=== PATIENT | male | born 1955 | race Caucasian/White ===

== ENCOUNTER 2023-09-21 12:56 | Outpatient (CLI) | payer OTHER | END 2023-09-21 12:57 | disposition home or self-care (01) | LOC: BICMRI 12:56 | PROVIDERS: ATTEND Student in an Organized Health Care Education/Training Program | DX: M25.551 Pain in right hip (principal); M25.552 Pain in left hip; M16.0 Bilateral primary osteoarthritis of hip; M67.854 Other specified disorders of tendon, left hip; M67.853 Other specified disorders of tendon, right hip; S76.012A Strain of muscle, fascia and tendon of left hip, initial encounter; S76.011A Strain of muscle, fascia and tendon of right hip, initial encounter | CPT/HCPCS: 72081 ==

== ENCOUNTER 2024-05-23 11:00 | Outpatient (CLI) | payer OTHER | END 2024-05-23 11:01 | disposition home or self-care (01) | LOC: PET 11:00 | PROVIDERS: ATTEND Internal Medicine | DX: C65.2 Malignant neoplasm of left renal pelvis (principal); C77.9 Secondary and unspecified malignant neoplasm of lymph node, unspecified; R59.0 Localized enlarged lymph nodes; Z90.5 Acquired absence of kidney | CPT/HCPCS: 78815; A9552 ==

== ENCOUNTER 2024-07-11 11:24 | Outpatient (CLI) | payer OTHER | END 2024-07-11 11:25 | disposition home or self-care (01) | LOC: ULT 11:24 | PROVIDERS: ATTEND Internal Medicine | DX: M79.605 Pain in left leg (principal); C65.2 Malignant neoplasm of left renal pelvis ==

== ENCOUNTER 2024-08-04 02:36 | Observation (INO) | payer MEDICARE, OTHER ==
[2024-08-04 03:20] LABS: #Basophils 0.03 10x3/uL (0.0-0.2); %Basophils 0.5 % (0.0-1.0); %Eosinophils 0.9 % (0.0-10.0); %Lymphocytes 11.6 % (21.0-51.0); %Monocytes 7.1 % (0.0-10.0); Hematocrit 40.2 % (42.0-52.0); Hemoglobin 13.5 g/dL (14.0-18.0); Mean Corpuscular HGB CONC 33.6 g/dL (32.0-36.0); Mean Corpuscular Hemoglobin 29.1 pg (27.0-31.0); Mean Corpuscular Volume 86.6 fL (78.0-98.0); Mean Platelet Volume 12.3 fL (7.4-10.4); Platelet Count 164 10x3/uL (130-400); RBC Distribution Width 14.6 % (11.5-14.5); Red Blood Cell (RBC) Count 4.64 mill/uL (4.70-6.10)
[2024-08-04 03:40] LABS: ALT (SGPT) 10 U/L (Less than 45); Alkaline Phosphatase 50 U/L (40-110); Anion Gap 16 mmol/L (10-20); BUN (Urea Nitrogen) 9 mg/dL (8.4-25.7); Bilirubin, Total 0.6 mg/dL (0.3-1.2); Calc. Creatinine Clearance 0 mL/min (70-130); Carbon Dioxide 21 mmol/L (23-31); Chloride 103 mmol/L (98-107); Estimated GFR 54; Globulin 4.3 g/dL (2.4-3.5); Glucose 141 mg/dL (80-115); Potassium 3.6 mmol/L (3.5-5.1); Protein, Total 8.3 g/dL (5.8-8.1); Sodium 136 mmol/L (136-145)
[2024-08-04 04:01] LABS: AST (SGOT) 57 U/L (11-34)
[2024-08-04] MEDS ORDERED: Acetaminophen 500 MG TAB ONE (04:19)
[2024-08-04] MEDS ORDERED: cefTRIAXone (ROCEPHIN) 2 GM VIAL ONE (04:19)
[2024-08-04] MEDS ORDERED: Sodium Chloride 0.9% 100 ML ONE (04:19)
[2024-08-04] MEDS ORDERED: Azithromycin 500 MG VIAL ONE (04:19)
[2024-08-04] MEDS ORDERED: Morphine 2 MG/ML VIAL ONE (04:19)
[2024-08-04] MEDS ORDERED: Oseltamivir 75 MG CAP ONE (06:48)
[2024-08-04] MEDS ORDERED: Ondansetron ODT 4 MG TAB SL PRN (07:00)
[2024-08-04] MEDS ORDERED: Ondansetron PF 4 MG/2 ML Vial IVP PRN ×2 (07:00→08:52)
[2024-08-04] MEDS ORDERED: Acetaminophen 325 MG TAB PO PRN (07:00)
[2024-08-04 08:05] LABS: Bacteria/HPF None Seen HPF (None Seen); Bilirubin Negative (Negative); Blood, Urine Negative (Negative); CAUTI Indications for Culture Fever or rigors; Clarity Clear (Clear); Glucose, Urine (Dipstick) Normal (Negative); Ketone, Urine Negative (Negative); Leukocyte Negative Leu/uL (Negative); Nitrite Negative (Negative); Protein, Urine (Dipstick) Negative (Neg-Trace); RBC/HPF 0-3 HPF (0-3); Specific Gravity, Urine 1.022 (1.002-1.036); Squamous Epithelial None Seen HPF (0-3); Urobilinogen Normal mg/dL (Less than 2); WBC/HPF 0-3 HPF (0-3)
[2024-08-04 08:06] LABS: Urine Culture Reflex No No
[2024-08-04] MEDS ORDERED: Bisacodyl 5 MG TAB PO PRN (08:52)
[2024-08-04] MEDS ORDERED: Ondansetron ODT 8 MG TAB PO PRN (09:06)
[2024-08-04] MEDS ORDERED: Prochlorperazine Maleate 5 MG TAB PO PRN (09:28)
[2024-08-04] MEDS: Oseltamivir 75 MG CAP PO SCH ×2 (09:30→19:55)
[2024-08-04 09:32] VITALS: BMI 27.8
[2024-08-04] MEDS: guaiFENesin ER 600 MG TAB PO SCH ×2 (10:33→19:55)
[2024-08-04] MEDS: Acetaminophen 325 MG TAB PO PRN (10:34)
[2024-08-04] MEDS: Sodium Chloride 0.9% 1,000 ML IV SCH (10:34)
[2024-08-04] MEDS: Enoxaparin 40 MG (0.4 mL) SYRINGE SC SCH (10:34)
[2024-08-04] MEDS: HYDROcodone/Acetaminophen 10/325 mg Tablet PO PRN (10:36)
[2024-08-04] MEDS: hydrOXYzine 25 MG TAB PO PRN (15:40)
[2024-08-04] MEDS: Butalbital 50 MG/Aspirin 325 MG/Caffeine 40 MG CAPSULE PO SCH (17:18)
[2024-08-04] MEDS: Senokot 8.6 MG TAB PO SCH (18:20)
[2024-08-04] MEDS: Polyethylene Glycol 3350 17 GM Packet PO SCH (18:22)
[2024-08-04] MEDS: Calcium Carbonate 500 MG ChewTAB PO PRN (19:20)
[2024-08-04] MEDS: Amitriptyline HCl 100 MG TAB PO SCH (19:55)
[2024-08-04] MEDS ORDERED: cloNIDine 0.1 MG TAB PO PRN (21:00)
[2024-08-05] MEDS: cefTRIAXone\\ROCEPHIN 1 GM in Sodium Chloride 0.9% 100 ML IVPB SCH (05:08)
[2024-08-05] MEDS: Azithromycin 500 MG in Sodium Chloride 0.9% 250 ML 250 ML IVPB SCH (06:16)
[2024-08-05] MEDS: Senokot 8.6 MG TAB PO SCH (08:13)
[2024-08-05] MEDS: Polyethylene Glycol 3350 17 GM Packet PO SCH (08:14)
[2024-08-05 10:59] LABS: #Basophils Less than 0.03 10x3/uL (0.0-0.2); %Basophils 0.7 % (0.0-1.0); %Eosinophils 2.2 % (0.0-10.0); %Lymphocytes 31.6 % (21.0-51.0); %Monocytes 19.3 % (0.0-10.0); %Neutrophils 45.5 % (42.0-75.0)
[2024-08-05 11:00] LABS: Hematocrit 37.1 % (42.0-52.0); Hemoglobin 12.3 g/dL (14.0-18.0); Mean Corpuscular HGB CONC 33.2 g/dL (32.0-36.0); Mean Corpuscular Hemoglobin 29.2 pg (27.0-31.0); Mean Corpuscular Volume 88.1 fL (78.0-98.0); Mean Platelet Volume 12.2 fL (7.4-10.4); Platelet Count 125 10x3/uL (130-400); RBC Distribution Width 15.2 % (11.5-14.5); Red Blood Cell (RBC) Count 4.21 mill/uL (4.70-6.10)
[2024-08-05 11:28] LABS: Anion Gap 11 mmol/L (10-20); BUN (Urea Nitrogen) 9 mg/dL (8.4-25.7); Calc. Creatinine Clearance 87 mL/min (70-130); Calcium 8.4 mg/dL (7.8-10.44); Carbon Dioxide 26 mmol/L (23-31); Chloride 105 mmol/L (98-107); Estimated GFR 74; Glucose 131 mg/dL (80-115); Potassium 3.7 mmol/L (3.5-5.1); Sodium 138 mmol/L (136-145)
[2024-08-05 11:41] LABS: Platelet Adequacy Comment Platelets Decreased; Polychromasia SLIGHT = 2-3 cells HPF (0-2)
[2024-08-05 13:07] VITALS: BP 122/85; TEMP 98.6
== END 2024-08-05 14:10 | disposition home or self-care (01) ==
LOC: ERS 02:36 → T4-B 08:05
PROVIDERS: ADMIT Student in an Organized Health Care Education/Training Program; ATTEND Internal Medicine
DX: A41.9 Sepsis, unspecified organism (principal); M47.899 Other spondylosis, site unspecified; J10.1 Influenza due to other identified influenza virus with other respiratory manifestations; E78.5 Hyperlipidemia, unspecified; C68.9 Malignant neoplasm of urinary organ, unspecified; F41.9 Anxiety disorder, unspecified; I10 Essential (primary) hypertension; Z88.5 Allergy status to narcotic agent; Z79.899 Other long term (current) drug therapy; Z98.890 Other specified postprocedural states; Z79.51 Long term (current) use of inhaled steroids
CPT/HCPCS: 71045; 80048; 80053; 81001; 82962 ×2; 83605; 85025 ×2; 87040; 87081; 87086; 87428; 87430; 96361; 96365; 96372 ×2; 96375; 96376; 99284; G0378 ×3; J0456 ×2; J0696 ×2; J1650 ×2; J2272; J7030; J7050; 36415; 36416

== ENCOUNTER 2024-08-06 08:00 | Outpatient (CLI) | payer MEDICARE, OTHER | END 2024-08-06 08:01 | disposition home or self-care (01) | LOC: PET 08:00 | PROVIDERS: ATTEND Internal Medicine | DX: C65.2 Malignant neoplasm of left renal pelvis (principal); R16.0 Hepatomegaly, not elsewhere classified | CPT/HCPCS: 78815; A9552 ==

== ENCOUNTER 2025-03-04 15:40 | Emergency (ER) | payer OTHER ==
[~2025-03-04 15:40] MED LIST: Iopamidol-370 76% 500 ML MDV (1 ML CHARGE) ONE
[2025-03-04 17:18] LABS: #Basophils Less than 0.03 10x3/uL (0.0-0.2); #Eosinophils 0.17 10x3/uL (0.0-0.7); #Monocytes 0.87 10x3/uL (0.11-0.59); #Neutrophils 6.14 10x3/uL (1.40-6.50); %Basophils 0.2 % (0.0-1.0); %Eosinophils 2.0 % (0.0-10.0); %Lymphocytes 13.6 % (21.0-51.0); %Monocytes 10.4 % (0.0-10.0); %Neutrophils 73.2 % (42.0-75.0); Hematocrit 37.9 % (42.0-52.0); Hemoglobin 12.1 g/dL (14.0-18.0); Mean Corpuscular Hemoglobin 28.1 pg (27.0-31.0); Mean Corpuscular Volume 87.9 fL (78.0-98.0); Platelet Count 246 10x3/uL (130-400); Red Blood Cell (RBC) Count 4.31 mill/uL (4.70-6.10); White Blood Cell (WBC) Count 8.39 10x3/uL (4.8-10.8)
[2025-03-04 17:32] LABS: ALT (SGPT) Less than 7 U/L (Less than 45); AST (SGOT) 25 U/L (11-34); Albumin 3.9 g/dL (3.1-4.5); Alkaline Phosphatase 88 U/L (40-110); Anion Gap 15 mmol/L (10-20); BUN (Urea Nitrogen) 15 mg/dL (8.4-25.7); Bilirubin, Total 0.5 mg/dL (0.3-1.2); Calc. Creatinine Clearance 0 mL/min (70-130); Calcium 9.3 mg/dL (7.8-10.44); Carbon Dioxide 24 mmol/L (23-31); Chloride 106 mmol/L (98-107); Globulin 4.1 g/dL (2.4-3.5); Glucose 97 mg/dL (80-115); Lipase 23 U/L (8-78); Potassium 4.2 mmol/L (3.5-5.1); Sodium 141 mmol/L (136-145)
[2025-03-04 18:47] LABS: Bacteria/HPF None Seen HPF (None Seen); CAUTI Indications for Culture Acute Hematuria; Glucose, Urine (Dipstick) Normal (Negative); Leukocyte Negative Leu/uL (Negative); Protein, Urine (Dipstick) Negative (Neg-Trace); RBC/HPF 0-3 HPF (0-3); Specific Gravity, Urine 1.037 (1.002-1.036); WBC/HPF 0-3 HPF (0-3)
[2025-03-04 19:00] LABS: Urine Culture Reflex No No
== END 2025-03-04 20:15 | disposition home or self-care (01) ==
LOC: ERS 15:40
DX: C78.7 Secondary malignant neoplasm of liver and intrahepatic bile duct (principal); R10.11 Right upper quadrant pain; I10 Essential (primary) hypertension; Z85.528 Personal history of other malignant neoplasm of kidney; Z79.899 Other long term (current) drug therapy
CPT/HCPCS: 74177; 80053; 81001; 83690; 85025; 96374; 96376; J2270; Q9967

== ENCOUNTER 2025-03-19 14:07 | Outpatient (CLI) | payer OTHER ==
[2025-03-19] MEDS ORDERED: Iopamidol 370 76% 100 ML VIAL ONE (15:24)
== END 2025-03-19 14:08 | disposition home or self-care (01) ==
LOC: CT 14:07
PROVIDERS: ATTEND Internal Medicine
DX: C65.2 Malignant neoplasm of left renal pelvis (principal); C78.7 Secondary malignant neoplasm of liver and intrahepatic bile duct
CPT/HCPCS: 71260; 74177; Q9967

== ENCOUNTER 2025-04-22 16:22 | Inpatient (IN) | payer OTHER ==
[2025-04-22] MEDS ORDERED: Acetaminophen 500 MG TAB ONE (17:09)
[2025-04-22 17:18] LABS: #Basophils Less than 0.03 10x3/uL (0.0-0.2); #Eosinophils 0.09 10x3/uL (0.0-0.7); #Monocytes 0.48 10x3/uL (0.11-0.59); #Neutrophils 9.83 10x3/uL (1.40-6.50); %Basophils 0.2 % (0.0-1.0); %Eosinophils 0.8 % (0.0-10.0); %Lymphocytes 4.4 % (21.0-51.0); %Monocytes 4.4 % (0.0-10.0); %Neutrophils 89.7 % (42.0-75.0); Hematocrit 33.4 % (42.0-52.0); Hemoglobin 10.9 g/dL (14.0-18.0); Mean Corpuscular Hemoglobin 28.2 pg (27.0-31.0); Mean Corpuscular Volume 86.5 fL (78.0-98.0); Platelet Count 201 10x3/uL (130-400); Red Blood Cell (RBC) Count 3.86 mill/uL (4.70-6.10); White Blood Cell (WBC) Count 10.96 10x3/uL (4.8-10.8)
[2025-04-22 17:38] LABS: ALT (SGPT) 13 U/L (Less than 45); AST (SGOT) 42 U/L (11-34); Albumin 3.1 g/dL (3.1-4.5); Alkaline Phosphatase 138 U/L (40-110); Anion Gap 17 mmol/L (10-20); BUN (Urea Nitrogen) 18 mg/dL (8.4-25.7); Bilirubin, Total 0.8 mg/dL (0.3-1.2); CK (CPK) 41 U/L (30-200); Calc. Creatinine Clearance 0 mL/min (70-130); Calcium 9.3 mg/dL (7.8-10.44); Carbon Dioxide 23 mmol/L (23-31); Chloride 102 mmol/L (98-107); Globulin 4.6 g/dL (2.4-3.5); Glucose 132 mg/dL (80-115); Potassium 4.0 mmol/L (3.5-5.1); Sodium 138 mmol/L (136-145)
[2025-04-22 17:44] LABS: Bacteria/HPF None Seen HPF (None Seen); Glucose, Urine (Dipstick) Normal (Negative); Leukocyte 75 Leu/uL (Negative); Protein, Urine (Dipstick) 20 mg/dL (Neg-Trace); RBC/HPF None Seen HPF (0-3); Specific Gravity, Urine 1.015 (1.002-1.036)
[2025-04-22] MEDS ORDERED: Milk Of Magnesia 30 ML UDCUP PO PRN (21:35)
[2025-04-22] MEDS: Vancomycin (BATCH) 2.5 GM in Premix 1 BAG IVPB SCH (22:34)
[2025-04-22] MEDS: Acetaminophen 325 MG TAB PO PRN (22:36)
[2025-04-23] MEDS: cefTRIAXone\\ROCEPHIN 2 GM in Sodium Chloride 0.9% 100 ML IVPB SCH (04:00)
[2025-04-23 04:01] VITALS: BMI 25.7
[2025-04-23 04:50] LABS: #Basophils 0.04 10x3/uL (0.0-0.2); #Eosinophils 0.25 10x3/uL (0.0-0.7); #Monocytes 0.43 10x3/uL (0.11-0.59); #Neutrophils 6.86 10x3/uL (1.40-6.50); %Basophils 0.5 % (0.0-1.0); %Eosinophils 3.0 % (0.0-10.0); %Lymphocytes 7.5 % (21.0-51.0); %Monocytes 5.2 % (0.0-10.0); %Neutrophils 83.2 % (42.0-75.0); Hematocrit 30.6 % (42.0-52.0); Hemoglobin 9.5 g/dL (14.0-18.0); Mean Corpuscular Hemoglobin 27.9 pg (27.0-31.0); Mean Corpuscular Volume 89.7 fL (78.0-98.0); Platelet Count 155 10x3/uL (130-400); Red Blood Cell (RBC) Count 3.41 mill/uL (4.70-6.10); White Blood Cell (WBC) Count 8.25 10x3/uL (4.8-10.8)
[2025-04-23 05:22] LABS: ALT (SGPT) 12 U/L (Less than 45); AST (SGOT) 37 U/L (11-34); Albumin 2.7 g/dL (3.1-4.5); Alkaline Phosphatase 129 U/L (40-110); Anion Gap 13 mmol/L (10-20); BUN (Urea Nitrogen) 17 mg/dL (8.4-25.7); Bilirubin, Total 0.7 mg/dL (0.3-1.2); Calc. Creatinine Clearance 82 mL/min (70-130); Calcium 8.4 mg/dL (7.8-10.44); Carbon Dioxide 24 mmol/L (23-31); Chloride 105 mmol/L (98-107); Globulin 4.0 g/dL (2.4-3.5); Glucose 98 mg/dL (80-115); Potassium 3.6 mmol/L (3.5-5.1); Sodium 138 mmol/L (136-145)
[2025-04-23] MEDS: Senokot S 8.6-50 MG TAB PO SCH (08:55)
[2025-04-23] MEDS: Enoxaparin 40 MG (0.4 mL) SYRINGE SC SCH (08:56)
[2025-04-23] MEDS ORDERED: Dexamethasone 1 MG TAB PO PRN (09:54)
[2025-04-23] MEDS ORDERED: Iopamidol-370 76% 500 ML MDV (1 ML CHARGE) ONE (10:22)
[2025-04-23] MEDS: oxyCODONE 5 MG TAB PO PRN (10:59)
[2025-04-23 11:44] VITALS: BMI 25.7
[2025-04-23] MEDS: Ondansetron PF 4 MG/2 ML Vial IVP PRN (12:13)
[2025-04-24 05:47] LABS: #Basophils 0.03 10x3/uL (0.0-0.2); #Eosinophils 0.27 10x3/uL (0.0-0.7); #Monocytes 0.56 10x3/uL (0.11-0.59); #Neutrophils 6.78 10x3/uL (1.40-6.50); %Basophils 0.4 % (0.0-1.0); %Eosinophils 3.3 % (0.0-10.0); %Lymphocytes 7.1 % (21.0-51.0); %Monocytes 6.8 % (0.0-10.0); %Neutrophils 81.7 % (42.0-75.0); Hematocrit 28.7 % (42.0-52.0); Hemoglobin 9.2 g/dL (14.0-18.0); Mean Corpuscular Hemoglobin 28.0 pg (27.0-31.0); Mean Corpuscular Volume 87.5 fL (78.0-98.0); Platelet Count 131 10x3/uL (130-400); Red Blood Cell (RBC) Count 3.28 mill/uL (4.70-6.10); White Blood Cell (WBC) Count 8.29 10x3/uL (4.8-10.8)
[2025-04-24 06:01] LABS: Anion Gap 7 mmol/L (10-20); BUN (Urea Nitrogen) 14 mg/dL (8.4-25.7); Calc. Creatinine Clearance 95 mL/min (70-130); Calcium 8.6 mg/dL (7.8-10.44); Carbon Dioxide 23 mmol/L (23-31); Chloride 106 mmol/L (98-107); Glucose 92 mg/dL (80-115); Potassium 3.6 mmol/L (3.5-5.1); Sodium 132 mmol/L (136-145)
[2025-04-24] MEDS ORDERED: Simethicone Chewable 80 MG TAB PO PRN (10:06)
[2025-04-25] MEDS: FLU (Fluad Triv) 25-26 (65UP)PF 45 MCG/0.5 ML Syringe IM ONE (08:05)
[2025-04-25] MEDS: PNEUMOC 20-VAL CONJ-DIP CRM/PF 0.5 ML SYRINGE IM ONE (08:06)
[2025-04-25 14:29] VITALS: BP 102/75; TEMP 98.4
== END 2025-04-25 14:30 | disposition home or self-care (01) | DRG 872 ==
LOC: ERS 16:22 → MSONC 18:42
PROVIDERS: ADMIT Family Medicine; ATTEND Hospitalist
PROC: 3E03329 Introduction of Other Anti-infective into Peripheral Vein, Percutaneous Approach (ICD-10-PCS; principal; 2025-04-22)
PROC: 3E0234Z Introduction of Serum, Toxoid and Vaccine into Muscle, Percutaneous Approach (ICD-10-PCS; 2025-04-22)
DX: A41.9 Sepsis, unspecified organism (principal); N39.0 Urinary tract infection, site not specified; C68.9 Malignant neoplasm of urinary organ, unspecified; D84.9 Immunodeficiency, unspecified; E78.5 Hyperlipidemia, unspecified; K59.00 Constipation, unspecified; E03.9 Hypothyroidism, unspecified; I12.9 Hypertensive chronic kidney disease with stage 1 through stage 4 chronic kidney disease, or unspecified chronic kidney disease; N18.9 Chronic kidney disease, unspecified; Z79.890 Hormone replacement therapy; Z98.890 Other specified postprocedural states; Z79.899 Other long term (current) drug therapy
CPT/HCPCS: 36415; 71045; 71260; 74177; 80048; 80053; 81001; 82550; 83605; 85025; 87040; 87077; 87086; 87186; 87428; 93005; 96365; 96366; 96368; 96375; J0696; J1650; J2405; J2543; J3010; J3373; J7030; Q0162; Q9967

== ENCOUNTER 2025-05-10 18:09 | Emergency (ER) | payer OTHER ==
[2025-05-10 18:51] LABS: #Basophils 0.06 10x3/uL (0.0-0.2); #Eosinophils 0.17 10x3/uL (0.0-0.7); #Monocytes 1.28 10x3/uL (0.11-0.59); #Neutrophils 7.62 10x3/uL (1.40-6.50); %Basophils 0.6 % (0.0-1.0); %Eosinophils 1.6 % (0.0-10.0); %Lymphocytes 10.2 % (21.0-51.0); %Monocytes 12.4 % (0.0-10.0); %Neutrophils 73.7 % (42.0-75.0); Hematocrit 32.1 % (42.0-52.0); Hemoglobin 9.9 g/dL (14.0-18.0); Mean Corpuscular Hemoglobin 28.1 pg (27.0-31.0); Mean Corpuscular Volume 91.2 fL (78.0-98.0); Platelet Count 264 10x3/uL (130-400); Red Blood Cell (RBC) Count 3.52 mill/uL (4.70-6.10); White Blood Cell (WBC) Count 10.34 10x3/uL (4.8-10.8)
[2025-05-10 19:09] LABS: ALT (SGPT) 8 U/L (Less than 45); AST (SGOT) 35 U/L (11-34); Albumin 3.0 g/dL (3.1-4.5); Alkaline Phosphatase 158 U/L (40-110); Anion Gap 16 mmol/L (10-20); BUN (Urea Nitrogen) 16 mg/dL (8.4-25.7); Bilirubin, Total 0.4 mg/dL (0.3-1.2); Calc. Creatinine Clearance 0 mL/min (70-130); Calcium 9.6 mg/dL (7.8-10.44); Carbon Dioxide 26 mmol/L (23-31); Chloride 100 mmol/L (98-107); Globulin 4.7 g/dL (2.4-3.5); Glucose 110 mg/dL (80-115); Potassium 4.7 mmol/L (3.5-5.1); Sodium 137 mmol/L (136-145)
== END 2025-05-10 19:50 ==
LOC: ERS 18:09
DX: Z53.21 Procedure and treatment not carried out due to patient leaving prior to being seen by health care provider (principal)
CPT/HCPCS: 36415; 80053; 85025